=== PATIENT | male | born 1985 | race Caucasian/White ===

== ENCOUNTER 2018-02-02 23:26 | Inpatient (IN) | payer MEDICAID ==
[~2018-02-02] VITALS: Ht 177.8 cm; Wt 80.7 kg
[2018-02-03] MEDS ORDERED: GABA-531 PO (01:06)
[2018-02-03] MEDS ORDERED: DiphenhydrAMINE HCL 50 MG/ML VIAL IM ONE (01:45)
[2018-02-03] MEDS ORDERED: LORazepam 2 MG/ML VIAL IM ONE (01:45)
[2018-02-03] MEDS ORDERED: HALOPERIDOL LACTATE 5 MG/ML VIAL IM ONE (01:45)
[2018-02-03] MEDS ORDERED: DiphenhydrAMINE HCL 25 MG CAPSULE PO ONE (02:00)
[2018-02-03] MEDS ORDERED: LORazepam 2 MG TABLET PO ONE (02:00)
[2018-02-03] MEDS ORDERED: HALOPERIDOL 5 MG TABLET PO ONE (02:00)
[2018-02-03 03:18] LABS: BASOPHILS % (AUTO) 0.8 % (0.0-2.0); EOSINOPHILS % (AUTO) 2.2 % (1.0-6.0); HEMATOCRIT 40.6 % (41-53); HEMOGLOBIN 14.1 g/dL (13.5-17.5); LYMPHOCYTES # (AUTO) 2.2 K/uL (1.0-4.8); LYMPHOCYTES % (AUTO) 29.8 % (22.0-44.0); MEAN CORPUSCULAR HEMOGLOBIN 30.2 pg (26.0-34.0); MEAN CORPUSCULAR HGB CONC 34.8 G/dL (31.0-37.0); MEAN CORPUSCULAR VOLUME 87 fL (80-100); MONOCYTES # (AUTO) 0.7 K/uL (0.1-1.0); NEUTROPHILS # (AUTO) 4.3 K/uL (1.8-7.7); NEUTROPHILS % (AUTO) 57.2 % (40.0-70.0); PLATELET COUNT (AUTO) 239 K/uL (150-450); RED BLOOD CELL COUNT(AUTO) 4.68 MIL/uL (4.50-5.90); RED CELL DISTRIBUTION WIDTH 12.7 % (11.5-14.5)
[2018-02-03 03:23] LABS: ANION GAP 7 mmol/L (8-16); CALCIUM, TOTAL 9.1 mg/dL (8.8-10.5); CARBON DIOXIDE 29 mmol/L (22-29); CHLORIDE 100 mmol/L (98-107); CREATININE 1.15 mg/dL (0.60-1.30); GLOMERULAR FILTR. RATE CALC > 60 mL/min (>60); GLUCOSE,RANDOM 79 mg/dL (70-110); POTASSIUM 3.6 mmol/L (3.5-5.1); SODIUM SERUM 136 mmol/L (136-145); UREA NITROGEN, BLOOD 13 mg/dL (7-18)
[2018-02-03 03:29] LABS: ALANINE AMINOTRANSFERASE 70 U/L (12-78); ALBUMIN 3.8 g/dL (3.4-5.0); ALKALINE PHOSPHATASE 58 U/L (46-116); ASPARTATE AMINOTRANSFERASE 37 U/L (15-37); BILIRUBIN,TOTAL 0.4 mg/dL (0.1-1.0); TOTAL PROTEIN, SERUM 7.6 g/dL (6.4-8.2)
[2018-02-03] MEDS ORDERED: ZOLPIDEM TARTRATE 10 MG TABLET PO PRN (04:00)
[2018-02-03 05:20] VITALS: BP 108/60
[2018-02-03] MEDS ORDERED: GuaiFENesin/D-METHORPHAN [SUGAR-FREE] 200-20MG/10 ML SYRUP UDCUP PO PRN (15:30)
[2018-02-03] MEDS ORDERED: DOCUSATE SODIUM 100 MG CAPSULE PO PRN (15:30)
[2018-02-03] MEDS ORDERED: NICOTINE 14 MG/24 HOUR PATCH TD PRN (15:30)
[2018-02-03] MEDS ORDERED: ACETAMINOPHEN 325 MG TABLET PO PRN (15:30)
[2018-02-03] MEDS ORDERED: ONDANSETRON HCL 4 MG TABLET PO PRN (15:30)
[2018-02-03] MEDS ORDERED: ALBUTEROL SULFATE HFA 90 MCG/PUFF 8 GM INHALER IH PRN (15:30)
[2018-02-03] MEDS ORDERED: MAGNESIUM HYDROXIDE SUSPENSION 30 ML UDCUP PO PRN (15:30)
[2018-02-03] MEDS ORDERED: LOPERAMIDE HCL 2 MG CAPSULE PO PRN (15:30)
[2018-02-03] MEDS ORDERED: PETROLATUM,WHITE 71 GM JELLY TP PRN (15:30)
[2018-02-03] MEDS ORDERED: MAG HYDROX/AL HYDROX/SIMETH ES 30 ML SUSPENSION UDCUP PO PRN (15:30)
[2018-02-03] MEDS ORDERED: IBUPROFEN 400 MG TABLET PO PRN (15:30)
[2018-02-03] MEDS ORDERED: CloNIDine HCL 0.1 MG TABLET PO PRN (15:30)
[2018-02-03 16:33] VITALS: BP 113/77
[2018-02-03] MEDS: GABAPENTIN 300 MG CAPSULE PO SCH ×2 (17:41→21:00)
[2018-02-03] MEDS: QUEtiapine FUMARATE 100 MG TABLET PO SCH (21:00)
[2018-02-04] MEDS: GABAPENTIN 300 MG CAPSULE PO SCH ×3 (09:11→21:09)
[2018-02-04] MEDS: HALOPERIDOL 5 MG TABLET PO PRN (13:50)
[2018-02-04] MEDS: LORazepam 2 MG TABLET PO PRN ×2 (13:50→21:09)
[2018-02-04] MEDS: QUEtiapine FUMARATE 100 MG TABLET PO SCH (21:09)
[2018-02-05 07:18] LABS: CHOL/HDL RATIO 2.4 (4.2-7.3)
[2018-02-05] MEDS: GABAPENTIN 300 MG CAPSULE PO SCH ×3 (07:49→20:14)
[2018-02-05] MEDS: HALOPERIDOL 5 MG TABLET PO PRN ×2 (12:26→18:19)
[2018-02-05] MEDS: LORazepam 2 MG TABLET PO PRN ×2 (12:26→18:19)
[2018-02-05] MEDS: QUEtiapine FUMARATE 100 MG TABLET PO SCH (20:14)
[2018-02-06] MEDS: GABAPENTIN 300 MG CAPSULE PO SCH ×3 (08:36→20:00)
[2018-02-06] MEDS: LORazepam 2 MG TABLET PO PRN ×2 (10:41→14:42)
[2018-02-06] MEDS: HALOPERIDOL 5 MG TABLET PO PRN (10:41)
[2018-02-06] MEDS ORDERED: DiphenhydrAMINE HCL 50 MG/ML VIAL IM ONE (13:30)
[2018-02-06 16:24] VITALS: BP 142/74
[2018-02-06] MEDS: QUEtiapine FUMARATE 100 MG TABLET PO SCH (20:00)
[2018-02-07] MEDS: GABAPENTIN 300 MG CAPSULE PO SCH (09:01)
[2018-02-07] MEDS: LORazepam 2 MG TABLET PO PRN (12:15)
[2018-02-07] MEDS ORDERED: GABA-531 PO (13:33)
[2018-02-07] MEDS ORDERED: QUET100T33 PO (13:33)
== END 2018-02-07 16:00 | disposition home or self-care (01) | DRG 750 ==
LOC: EMS 23:27 → 3EC 02-03 05:48
DX: F25.1 Schizoaffective disorder, depressive type (principal); F11.20 Opioid dependence, uncomplicated; R45.851 Suicidal ideations; F14.90 Cocaine use, unspecified, uncomplicated; F15.90 Other stimulant use, unspecified, uncomplicated; F17.200 Nicotine dependence, unspecified, uncomplicated; Z71.6 Tobacco abuse counseling; F31.9 Bipolar disorder, unspecified; F43.10 Post-traumatic stress disorder, unspecified; G44.209 Tension-type headache, unspecified, not intractable; Z59.0 Homelessness; Z79.899 Other long term (current) drug therapy; Z28.21 Immunization not carried out because of patient refusal
CPT/HCPCS: G0480; J1200; J1630; J2060

== ENCOUNTER 2019-12-20 22:33 | Inpatient (IN) | payer MEDICAID ==
[~2019-12-20] VITALS: Ht 177.8 cm; Wt 86.4 kg
[~2019-12-20 22:33] MED LIST: GABA-531 PO; QUET100T33 PO
[2019-12-20] MEDS ORDERED: BACITRACIN 0.9 GM PACKET OINTMENT TP ONE (23:00)
[2019-12-20] MEDS ORDERED: PERTUSS(ACELL),DIPH,TET VAC/PF 0.5 ML VIAL IM ONE (23:00)
[2019-12-20 23:13] LABS: BASOPHILS % (AUTO) 0.4 % (0.0-2.0); EOSINOPHILS % (AUTO) 0.8 % (1.0-6.0); HEMATOCRIT 43.6 % (41-53); HEMOGLOBIN 14.6 g/dL (13.5-17.5); LYMPHOCYTES # (AUTO) 1.7 K/uL (1.0-4.8); LYMPHOCYTES % (AUTO) 26.2 % (22.0-44.0); MEAN CORPUSCULAR HEMOGLOBIN 30.5 pg (26.0-34.0); MEAN CORPUSCULAR HGB CONC 33.5 G/dL (31.0-37.0); MEAN CORPUSCULAR VOLUME 91 fL (80-100); MONOCYTES # (AUTO) 0.8 K/uL (0.1-1.0); MONOCYTES % (AUTO) 12.5 % (2.0-9.0); NEUTROPHILS # (AUTO) 3.9 K/uL (1.8-7.7); NEUTROPHILS % (AUTO) 60.1 % (40.0-70.0); PLATELET COUNT (AUTO) 255 K/uL (150-450); RED BLOOD CELL COUNT(AUTO) 4.78 MIL/uL (4.50-5.90); RED CELL DISTRIBUTION WIDTH 12.9 % (11.5-14.5)
[2019-12-20] MEDS ORDERED: LIDOCAINE 1%/EPI 1:200,000/PF 10 ML VIAL INJ ONE (23:15)
[2019-12-20 23:28] LABS: ANION GAP 13 mmol/L (8-16); CARBON DIOXIDE 26 mmol/L (22-29); CHLORIDE 97 mmol/L (98-107); GLUCOSE,RANDOM 79 mg/dL (70-110); POTASSIUM 3.6 mmol/L (3.5-5.1); SODIUM SERUM 136 mmol/L (136-145); UREA NITROGEN, BLOOD 13 mg/dL (7-18)
[2019-12-20] MEDS ORDERED: DiphenhydrAMINE HCL 50 MG/ML VIAL ONE (23:28)
[2019-12-20] MEDS ORDERED: LORazepam 2 MG/ML VIAL ONE (23:28)
[2019-12-20] MEDS ORDERED: HALOPERIDOL LACTATE 5 MG/ML VIAL ONE (23:28)
[2019-12-20 23:29] LABS: CALCIUM, TOTAL 9.8 mg/dL (8.8-10.5); CREATININE 1.26 mg/dL (0.60-1.30); GLOMERULAR FILTR. RATE CALC > 60 mL/min (>60)
[2019-12-20] MEDS ORDERED: HALOPERIDOL LACTATE 5 MG/ML VIAL IM ONE (23:30)
[2019-12-20] MEDS ORDERED: LORazepam 2 MG/ML VIAL IM ONE (23:30)
[2019-12-20] MEDS ORDERED: DiphenhydrAMINE HCL 50 MG/ML VIAL IM ONE (23:30)
[2019-12-20 23:34] LABS: ALANINE AMINOTRANSFERASE 74 U/L (12-78); ALBUMIN 4.3 g/dL (3.4-5.0); ALKALINE PHOSPHATASE 63 U/L (46-116); ASPARTATE AMINOTRANSFERASE 50 U/L (15-37); BILIRUBIN,TOTAL 0.3 mg/dL (0.1-1.0); TOTAL PROTEIN, SERUM 8.5 g/dL (6.4-8.2)
[2019-12-21] MEDS ORDERED: HALOPERIDOL 5 MG TABLET PO PRN (04:00)
[2019-12-21] MEDS ORDERED: ZOLPIDEM TARTRATE 10 MG TABLET PO PRN (04:00)
[2019-12-21] MEDS ORDERED: LORazepam 2 MG TABLET PO PRN (04:00)
[2019-12-21 04:40] LABS: COVID AG,FIA SOURCE NASOPHARYNGEAL
[2019-12-21 04:53] LABS: GLUCOSE,POINT OF CARE 74 MG/DL (70-110)
[2019-12-21 08:30] VITALS: BP 106/63
[2019-12-21] MEDS: METHADONE HCL 10 MG TABLET PO SCH (12:10)
[2019-12-21 16:20] VITALS: BP 100/58
[2019-12-21] MEDS: GABAPENTIN 300 MG CAPSULE PO SCH ×2 (16:48→20:38)
[2019-12-21] MEDS: QUEtiapine FUMARATE 100 MG TABLET PO SCH (20:38)
[2019-12-22 08:35] VITALS: BP 90/45
[2019-12-22 08:51] VITALS: BP 108/53
[2019-12-22] MEDS: METHADONE HCL 10 MG TABLET PO SCH (08:51)
[2019-12-22] MEDS: GABAPENTIN 300 MG CAPSULE PO SCH ×3 (08:51→20:13)
[2019-12-22] MEDS: BuPROPion HCL XL 150 MG ER TABLET PO SCH (12:12)
[2019-12-22 16:53] VITALS: BP 129/82
[2019-12-22] MEDS: QUEtiapine FUMARATE 100 MG TABLET PO SCH (20:13)
[2019-12-23 04:13] VITALS: BP 125/67
[2019-12-23 08:30] VITALS: BP 128/69
[2019-12-23] MEDS: GABAPENTIN 300 MG CAPSULE PO SCH ×2 (08:34→16:02)
[2019-12-23] MEDS: BuPROPion HCL XL 150 MG ER TABLET PO SCH (08:34)
[2019-12-23] MEDS: METHADONE HCL 10 MG TABLET PO SCH (08:34)
[2019-12-23] MEDS ORDERED: FOLIC ACID 1 MG TABLET PO SCH (09:00)
[2019-12-23] MEDS ORDERED: MULTIVITAMINS, THERAPEUTIC TABLET PO SCH (09:00)
[2019-12-23] MEDS ORDERED: THIAMINE 100 MG TABLET PO SCH (09:00)
[2019-12-23] MEDS ORDERED: BUPR-93 PO (15:59)
== END 2019-12-23 17:22 | disposition home or self-care (01) | DRG 750 ==
LOC: EMS 22:33 → B3A 12-21 04:00
PROVIDERS: ADMIT Psychiatry & Neurology Child & Adolescent Psychiatry; ATTEND Psychiatry & Neurology Child & Adolescent Psychiatry
PROC: 0HQEXZZ Repair Left Lower Arm Skin, External Approach (ICD-10-PCS; principal; 2019-12-21)
PROC: 0HQDXZZ Repair Right Lower Arm Skin, External Approach (ICD-10-PCS; 2019-12-21)
DX: F25.1 Schizoaffective disorder, depressive type (principal); F10.10 Alcohol abuse, uncomplicated; F43.10 Post-traumatic stress disorder, unspecified; R45.851 Suicidal ideations; S61.512A Laceration without foreign body of left wrist, initial encounter; S61.511A Laceration without foreign body of right wrist, initial encounter; F17.210 Nicotine dependence, cigarettes, uncomplicated; F41.9 Anxiety disorder, unspecified; R00.1 Bradycardia, unspecified; F31.9 Bipolar disorder, unspecified; R74.01 Elevation of levels of liver transaminase levels; F19.10 Other psychoactive substance abuse, uncomplicated; Z79.899 Other long term (current) drug therapy; X83.8XXA Intentional self-harm by other specified means, initial encounter; Y93.89 Activity, other specified; Y92.89 Other specified places as the place of occurrence of the external cause; Y99.8 Other external cause status; Z03.818 Encounter for observation for suspected exposure to other biological agents ruled out
CPT/HCPCS: 87426; 90715; 99291; G0480; J1200; J1630; J2060; J3490